=== PATIENT | male | born 1970 | race Caucasian/White ===

== ENCOUNTER 2019-12-23 07:05 | Outpatient (CLI) | payer BC, SELFPAY ==
[2019-12-23 07:31] LABS: Basophils # 0.1 10^3/uL (0.0-0.1); Basophils % 0.8 %; Eosinophils # 0.2 10^3/uL (0.0-0.8); Eosinophils % 3.3 %; Hematocrit 49.4 % (42.0-52.0); Hemoglobin 15.5 g/dL (11.7-16.6); Lymphocytes # 2.2 10^3/uL (0.8-4.8); Lymphocytes % 30.6 %; Mean Corpuscular HGB Conc 31.4 g/dL (30.0-36.0); Mean Corpuscular Hemoglobin 26.9 pg (28.0-34.0); Mean Corpuscular Volume 85.6 fL (80-94); Mean Platelet Volume 11.2 fL (7.4-10.4); Monocytes # 0.5 10^3/uL (0.2-0.9); Monocytes % 7.2 %; Neutrophils # 4.22 10^3/uL (1.8-7.7); Neutrophils % 57.7 %; Nucleated Red Blood Cells % 0 %; Platelet Count 245 10^3/cmm (130-400); Red Blood Count 5.77 10^6/uL (4.1-5.3); Red Cell Distribution Width 13.7 % (12.1-15.1); White Blood Count 7.3 10^3/uL (4.0-10.0)
[2019-12-23 07:50] LABS: Anion Gap 15.5 (5-19); Blood Urea Nitrogen 21 mg/dL (6-20); Calcium 9.8 mg/dL (8.5-10.5); Carbon Dioxide 27 mmol/L (22-29); Chloride 101 mmol/L (98-107); Glomerular Filtration Rate 64.9 mL/min (90-130); Glucose 105 mg/dL (65-115); Osmolality Calculated 293 mOsm/kg (285-295); Potassium 3.5 mmol/L (3.5-5.1); Sodium 140 mmol/L (136-145)
--- NOTE | 2019-12-23 07:57 | ECG_ITS ---
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 Measurements Intervals [place] Rate: 54 P: 22 OR: 186 QRS: -5 QRSD: 134 T: 36 QT: 422 QTc: 401 Interpretive Statements SINUS BRADYCARDIA INTRAVENTRICULAR CONDUCTION DELAY [130+ ms QRS DURATION] No previous ECG available for comparison Electronically Signed On 12-23-2019 21:35:53 CDT by Gabriel Perez M.D. [id number]
== END 2019-12-23 07:06 | disposition home or self-care (01) ==
LOC: LAB 07:09
PROVIDERS: Family Provider Family Medicine; PCP Electrodiagnostic Medicine; Visit Provider Orthopaedic Surgery
DX: Z01.818 Encounter for other preprocedural examination (principal); G56.00 Carpal tunnel syndrome, unspecified upper limb; R00.1 Bradycardia, unspecified
CPT/HCPCS: 36415; 80048; 85025; 93005

== ENCOUNTER 2020-11-20 21:00 | Emergency (ER) | payer BC, SELFPAY ==
[2020-11-20 21:08] VITALS: BP 140/84; PULSE 73; RESP 20; TEMP 36.6; O2SAT 94; BMI 45.9
[2020-11-20] MEDS: tetanus-dipt-pertussis 0.5 mL SDV IM (21:18)
[2020-11-20] MEDS: lidocaine 1% INJ 20 mL INTRADERMA (21:19)
--- NOTE | 2020-11-20 21:37 | ED_ITS ---
HPI - Wound/Laceration General: Chief Complaint: Wound/Laceration Stated Complaint: left leg lac Time Seen by Provider: 11/20/20 21:10 History of Present Illness: HPI narrative: Patient was using a knife tonight to cut a zip tie and his knife slipped after cutting it and cut his left leg lower aspect. This happened an hour or 2 ago. Onset (ago): hour(s) Extremity Location: Left: lower leg Place: home Patient tetanus UTD: No Context: accidental Associated symptoms: Reports no associated symptoms; Denies chills or fever(s) Review of Systems Const: Denies: fever(s) or chills Skin/Breast: Reports: other (Laceration left leg lower aspect) Psych: Denies: anxiety or depression Physical Exam Const: COMMON NORMALS: no acute distress GENERAL APPEARANCE: cooperative Psych: COMMON NORMALS: mental status grossly normal Skin: OTHER: Has a 3 inch irregular superficial laceration to left leg lower aspect with active bleeding. Patient does have 2+ edema to both bilateral extremities. Procedures Laceration Laceration 1: Site: lower extremity Side (If applicable): left Size (cm): 7 Description: linear, irregular and clean Depth: simple, single layer Local Anesthetic: lidocaine 1% Pre-repair: wound explored, irrigated extensively and deep structures intact Skin layer closed with: other (Ethilon) Size (cm): 4-0 Number of sutures: 8 Technique: simple, interrupted Course Vital Signs: Vital signs: Vital Signs Temperature 97.8 F 11/20/20 21:08 Pulse Rate 73 11/20/20 21:08 Respiratory Rate 20 H 11/20/20 21:08 Blood Pressure 140/84 11/20/20 21:08 Pulse Oximetry 94 11/20/20 21:08 Discharge Plan Discharge Patient Disposition: Home Clinical Impression: Laceration Condition: Stable Discharge Orders: Discharge ED (Routine); Ordered 11/20/20 Ordered By: Ghulam Jonas Referrals: Severiano Norton DO [Primary Care Provider] - Discharge Diet: Usual diet Discharge Activity: Resume usual activity Patient Instructions: Suture Care (ED), Laceration (ED) Activity Restrictions/Additional Instructions: Sutures out in 7 days. Can return here to the ER to have them removed. Watch for signs and symptoms of infection. Follow-up your family medical provider if necessary. 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
[2020-11-20 21:41] VITALS: RESP 16
== END 2020-11-20 21:43 | disposition home or self-care (01) ==
PROVIDERS: Emergency Provider Nurse Practitioner Family; PCP Electrodiagnostic Medicine
DX: S81.812A Laceration without foreign body, left lower leg, initial encounter (principal); W26.0XXA Contact with knife, initial encounter; Z23 Encounter for immunization
CPT/HCPCS: 12002; 90715; 99282

== ENCOUNTER 2022-09-08 15:47 | Emergency (ER) | payer BC, SELFPAY ==
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
[2022-09-08 15:48] VITALS: BP 172/95; PULSE 110; RESP 18; TEMP 36.8; O2SAT 95; BMI 44.4
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
--- NOTE | 2022-09-08 16:03 | ECG_ITS ---
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 Measurements Intervals [place] Rate: 99 P: 18 KS: 180 QRS: -23 QRSD: 101 T: 51 QT: 337 QTc: 434 Interpretive Statements SINUS RHYTHM INFERIOR MYOCARDIAL INFARCTION , PROBABLY OLD [40+ ms Q WAVE AND/OR ST/T ABNORMALITY IN II/aVF] ANTEROSEPTAL MYOCARDIAL INFARCTION , OF INDETERMINATE AGE [40+ ms Q WAVE IN V1-V4] Compared to ECG 12/23/2019 07:48:53 Myocardial infarct finding now present Sinus bradycardia no longer present Intraventricular conduction delay no longer present Electronically Signed On 09-08-2022 17:30:30 CDT by Michael Fernando M.D. [id number]
[2022-09-08 16:18] LABS: Basophils % 0.5 %; Eosinophils # 0.1 10^3/uL (0.0-0.8); Eosinophils % 1.3 %; Hematocrit 49.1 % (42.0-52.0); Hemoglobin 15.8 g/dL (11.7-16.6); Lymphocytes # 2.2 10^3/uL (0.8-4.8); Lymphocytes % 25.7 %; Mean Corpuscular HGB Conc 32.2 g/dL (30.0-36.0); Mean Corpuscular Hemoglobin 27.3 pg (28.0-34.0); Mean Corpuscular Volume 84.9 fl (80-94); Mean Platelet Volume 10.7 fL (7.4-10.4); Monocytes # 0.6 10^3/uL (0.2-0.9); Monocytes % 6.6 %; Neutrophils # 5.53 10^3/uL (1.8-7.7); Neutrophils % 65.4 %; Nucleated Red Blood Cells % 0 %; Platelet Count 218 10^3/cmm (130-400); Red Blood Count 5.78 10^6/uL (4.1-5.3); Red Cell Distribution Width 14.3 % (12.1-15.1); White Blood Count 8.5 10^3/uL (4.0-10.0)
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
[2022-09-08 16:40] LABS: Alanine Aminotransferase 31 U/L (0-41); Albumin Level 4.3 g/dL (3.5-5.2); Alkaline Phosphatase 65 U/L (40-130); Anion Gap 17.7 (5-19); Aspartate Amino Transferase 26 U/L (0-40); Blood Urea Nitrogen 22 mg/dL (6-20); Calcium 9.1 mg/dL (8.5-10.5); Carbon Dioxide 24 mmol/L (22-29); Chloride 103 mmol/L (98-107); Globulin 2.9 g/dL (1.3-4.6); Glomerular Filtration Rate 49.5 mL/min (90-130); Glucose 85 mg/dL (65-115); Osmolality Calculated 295 mOsm/kg (285-295); Potassium 3.7 mmol/L (3.5-5.1); Sodium 141 mmol/L (136-145); Total Bilirubin 0.3 mg/dL (0.15-1.2); Total Protein 7.2 g/dL (6.6-8.7)
[2022-09-08 16:55] VITALS: PULSE 92; O2SAT 97
[2022-09-08] MEDS: iohexol 350 mg/mL 500 mL Btl (per mL) IV (17:23)
[2022-09-08 18:28] VITALS: BP 136/97; PULSE 83; O2SAT 95
[2022-09-08 19:09] VITALS: BP 145/78; PULSE 84; RESP 18; O2SAT 95
== END 2022-09-08 19:02 | disposition home or self-care (01) ==
PROVIDERS: Emergency Provider Family Medicine; PCP Electrodiagnostic Medicine
DX: S06.0XAA Concussion with loss of consciousness status unknown, initial encounter (principal); V89.2XXA Person injured in unspecified motor-vehicle accident, traffic, initial encounter
CPT/HCPCS: 36415; 70450; 71260; 72040; 72125; 74177; 80053; 85025; 93005; 99285; Q9967

== ENCOUNTER 2022-09-11 11:26 | Outpatient (CLI) | payer BC, SELFPAY ==
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
== END 2022-09-11 11:27 | disposition home or self-care (01) ==
LOC: RAD 11:29
PROVIDERS: PCP Electrodiagnostic Medicine; Visit Provider Electrodiagnostic Medicine
DX: R41.2 Retrograde amnesia (principal); R90.82 White matter disease, unspecified
CPT/HCPCS: 70551